=== PATIENT | male | born 1985 | race African-American/Black ===

== ENCOUNTER 2017-08-09 04:10 | Emergency (ER) | payer OTHER ==
[~2017-08-09] VITALS: Ht 182.9 cm; Wt 90.7 kg
[~2017-08-09 04:10] MED LIST: CYCLOBENZAPRINE10 MG ORAL; DICLOFENAC SODI75 MG ORAL; IBUPROFEN600 MG ORAL; ROBAXIN-750750 MG PO; TIZANIDINE HCL4 MG ORAL
[2017-08-09 04:25] VITALS: BP 122/82
[2017-08-09] MEDS ORDERED: IBUPROFEN600 MG ORAL (04:50)
[2017-08-09] MEDS ORDERED: PERCOCET 5-3251 EACH ORAL (04:50)
[2017-08-09 04:54] VITALS: BP 122/82
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
--- NOTE | 2017-08-09 09:24 | Diagnostic Imaging Report ---
Indication: PAIN chest pain Technique: One view of the chest Comparison: none Findings: Bands of atelectasis are seen at the left lung base. There is associated elevation left hemidiaphragm. Lungs and pleural spaces are otherwise clear. Heart size is normal. Impression: Left basilar atelectasis and elevation of the left hemidiaphragm No acute process otherwise
--- NOTE | 2017-08-11 18:40 | Cardiology Report ---
APPROVED REPORT EKG Measurement Heart [id number] Normal sinus rhythm Normal ECG
== END 2017-08-09 04:55 | disposition home or self-care (01) ==
LOC: EMR 04:30
DX: R07.81 Pleurodynia (principal)
CPT/HCPCS: 71010; 93005; 99284

== ENCOUNTER 2018-05-22 12:33 | Emergency (ER) | payer OTHER ==
[~2018-05-22] VITALS: Ht 182.9 cm; Wt 105.7 kg
[~2018-05-22 12:33] MED LIST changes: +PERCOCET 5-3251 EACH ORAL
[2018-05-22] MEDS ORDERED: CYCLOBENZAPRINE10 MG ORAL (13:00)
[2018-05-22 13:36] VITALS: BP 121/70
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
== END 2018-05-22 13:37 | disposition home or self-care (01) ==
LOC: EMR 13:23
DX: M54.9 Dorsalgia, unspecified (principal); M54.2 Cervicalgia
CPT/HCPCS: 99283